=== PATIENT | male | born 1990 | race Caucasian/White ===

== ENCOUNTER 2017-04-24 08:40 | Emergency (ER) | payer BC, OTHER ==
[~2017-04-24] VITALS: Ht 177.8 cm; Wt 90.0 kg
[2017-04-24 08:42] VITALS: BP 143/97; PULSE 69; TEMP 36.4; O2SAT 98; Ht 177.8 cm; Wt 90.0 kg
--- NOTE | 2017-04-24 08:55 | EMERGENCY ROOM VISIT NOTE ---
ED Visit Note First contact with patient: 08:45 CHIEF COMPLAINT: Toothache HISTORY OF PRESENT ILLNESS: This 27-year-old male presents the ER with chief complaint of right upper molar tooth pain for the past few weeks which has been getting progressively worse. The patient denies any facial swelling or neck pain. The patient states that he has been taking naproxen and using topical gel with some relief of the pain. He cannot get into a dentist for several weeks therefore he is here wanting antibiotics. REVIEW OF SYSTEMS: 6 system review was performed and was negative unless stated otherwise in history of present illness. PMH: The patient is healthy; knee surgery SOCIAL HISTORY: Patient admits to tobacco use but denies any alcohol use. PHYSICAL EXAM: Vital Signs: Were reviewed Reviewed Nurse's notes. GEN.: 27-year -old male appears in no acute distress. MENTAL Status: Alert and oriented 3. MOUTH: Right upper molar with a portion of the tooth missing. Surrounding gingiva without erythema or edema. No palpable abscess noted. FACE: No facial swelling noted. NECK: Supple, no lymphadenopathy noted EMERGENCY COURSE: I offered the patient pain medication but he declined. DIAGNOSIS: Dentalgia DISCHARGE INSTRUCTIONS & TREATMENT: Continue naproxen as directed. Use the dental wax as directed. Take amoxicillin as prescribed. Appointment with dentist for definitive care. Current/Historical Medications Miscellaneous Medications None (Patient States No Home Meds) Allergies Uncoded Allergies: SULFA (Allergy, Unknown, 09/15/02) Vital Signs Date Time Temp Pulse Resp B/P (MAP) Pulse Ox O2 Delivery O2 Flow Rate FiO2 04/24/17 08:42 36.4 69 16 143/97 98 Departure Information Patient Instructions My [facility]
[2017-04-24] MEDS ORDERED: AMOX500C3 PO (08:57)
== END 2017-04-24 09:03 | disposition home or self-care (01) ==
LOC: C.EDB 08:42
DX: K03.81 Cracked tooth (principal); F17.200 Nicotine dependence, unspecified, uncomplicated; Z88.2 Allergy status to sulfonamides